=== PATIENT | male | born 1990 ===

== ENCOUNTER 2017-03-29 00:33 | Emergency (ER) | payer OTHER, BC ==
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
[2017-03-29 00:53] VITALS: BP 146/83; PULSE 90; RESP 18; TEMP 98.5; O2SAT 97
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
== END 2017-03-29 02:05 | disposition home or self-care (01) ==
LOC: H.ER 00:33
DX: M79.604 Pain in right leg (principal); V43.52XA Car driver injured in collision with other type car in traffic accident, initial encounter; Y92.410 Unspecified street and highway as the place of occurrence of the external cause